=== PATIENT | male | born 1970 | race Hispanic/Latino ===

== ENCOUNTER 2021-10-02 00:55 | Emergency (ER) | payer SELFPAY ==
[2021-10-02] MEDS ORDERED: Ibuprofen 800 MG TAB ONE (01:33)
[2021-10-02] MEDS ORDERED: Labetalol HCl 100 MG/20 ML VIAL ONE (01:33)
[2021-10-02 01:36] LABS: Mean Corpuscular HGB CONC 33.1 g/dL (32.0-36.0); Mean Corpuscular Hemoglobin 29.2 pg (27.0-31.0); Mean Corpuscular Volume 88.3 fL (78.0-98.0); Platelet Count 92 thou/uL (130-400); RBC Distribution Width 11.3 % (11.5-14.5); Red Blood Cell (RBC) Count 5.47 mill/uL (4.70-6.10); White Blood Cell (WBC) Count 3.4 thou/uL (4.8-10.8)
[2021-10-02 01:39] LABS: #Lymphocytes 1.1 thou/uL (1.20-3.40); #Monocytes 0.3 thou/uL (0.11-0.59); %Basophils 0.7 % (0.0-1.0); %Lymphocytes 31.4 % (21.0-51.0); %Monocytes 9.9 % (0.0-10.0); %Neutrophils 57.9 % (42.0-75.0); Manual Diff?? NO; Mean Platelet Volume 10.4 fL (7.4-10.4)
[2021-10-02 01:40] LABS: Platelet Morphology Comment Appears Decreased; RBC Morphology Normal
[2021-10-02 01:54] LABS: Anion Gap 15 mmol/L (10-20)
[2021-10-02 01:58] LABS: Albumin 3.6 g/dL (3.5-5.0); BUN (Urea Nitrogen) 16 mg/dL (8.9-20.6); Bilirubin, Total 0.4 mg/dL (0.2-1.2); Calc. Creatinine Clearance 0 mL/min (70-130); Calcium 8.5 mg/dL (7.8-10.44); Carbon Dioxide 29 mmol/L (22-29); Chloride 95 mmol/L (98-107); Glucose 312 mg/dL (70-105); Potassium 4.6 mmol/L (3.5-5.1); Protein, Total 6.6 g/dL (6.0-8.3); Sodium 134 mmol/L (136-145)
[2021-10-02 01:59] LABS: ALT (SGPT) 42 U/L (8-55); AST (SGOT) 33 U/L (5-34); Alkaline Phosphatase 112 U/L (40-110)
[2021-10-02] MEDS ORDERED: Sodium Chloride 0.9% 1,000 ML ONE (02:06)
[2021-10-02] MEDS ORDERED: Insulin Regular 300 UNITS/3 ML VIAL ONE (02:06)
[2021-10-02 02:12] LABS: Bilirubin Negative (Negative); Blood, Urine Small (Negative); Clarity Clear (Clear); Glucose, Urine (Dipstick) >=1000 mg/dL (Negative); Ketone, Urine Trace mg/dL (Negative); Leukocyte Negative (Negative); Nitrite Negative (Negative); Protein, Urine (Dipstick) > or equal to 300 mg/dL (Neg-Trace); pH, Urine 5.5 (5.0-9.0)
[2021-10-02 02:13] LABS: Specific Gravity, Urine 1.028 (1.002-1.036); WBC/HPF 0-3 HPF (0-3)
[2021-10-02 02:14] LABS: Bacteria/HPF None Seen HPF (None Seen); Squamous Epithelial 0-3 HPF (0-3)
== END 2021-10-02 03:01 | disposition home or self-care (01) ==
LOC: NAV ERS 00:55
DX: I10 Essential (primary) hypertension (principal); E11.65 Type 2 diabetes mellitus with hyperglycemia; I89.0 Lymphedema, not elsewhere classified
CPT/HCPCS: 36416; 71045; 80053; 81003; 81015; 83880; 84484; 85025; 93005; 94760; 96374; 96375; J1815; J7050